=== PATIENT | female | born 1970 | race American Indian/Alaskan Native ===

== ENCOUNTER 2018-05-12 09:18 | Day surgery (SDC) | payer BC ==
[2018-05-12] MEDS ORDERED: Propofol 10 mg/ml Inj (20 ML) ONE (12:14)
[2018-05-12] MEDS ORDERED: Lactated Ringer's 500 ML IV ONE (12:37)
[2018-05-12 13:06] VITALS: RESP 16
[2018-05-12 13:11] VITALS: PULSE 69; TEMP 96.9
[2018-05-12] MEDS ORDERED: Lactated Ringer's 1,000 ML IV ONE (13:15)
[2018-05-12 13:51] VITALS: BP 118/70; O2SAT 99
== END 2018-05-12 13:45 | disposition home or self-care (01) ==
LOC: C.ENDO 09:18
PROVIDERS: ATTEND Internal Medicine Gastroenterology
DX: K63.5 Polyp of colon (principal); Z12.11 Encounter for screening for malignant neoplasm of colon; K64.1 Second degree hemorrhoids; K21.9 Gastro-esophageal reflux disease without esophagitis
CPT/HCPCS: 45380; 84703; 88305; J2001; J2704; J2765; J7120